=== PATIENT | female | born 1975 | race African-American/Black ===

== ENCOUNTER 2020-06-04 17:11 | Emergency (ER) | payer MEDICAID ==
[~2020-06-04] VITALS: Ht 160 cm; Wt 104.0 kg
[~2020-06-04 17:11] MED LIST: IBUP-1636 PO
[2020-06-04] MEDS ORDERED: ACETAMINOPHEN WITH CODEINE 300/30MG TABLET PO ONE (21:15)
[2020-06-04 22:35] VITALS: BP 161/104
== END 2020-06-04 22:36 | disposition home or self-care (01) ==
LOC: ER 17:11
DX: S09.90XA Unspecified injury of head, initial encounter (principal); S80.811A Abrasion, right lower leg, initial encounter; T14.8XXA Other injury of unspecified body region, initial encounter; I10 Essential (primary) hypertension; Z88.0 Allergy status to penicillin; Z90.49 Acquired absence of other specified parts of digestive tract; Z98.51 Tubal ligation status; Y00.XXXA Assault by blunt object, initial encounter; Y93.89 Activity, other specified; Y92.89 Other specified places as the place of occurrence of the external cause
CPT/HCPCS: 73000; 73030; 73590; 81025; 99284

== ENCOUNTER 2020-09-26 09:08 | Emergency (ER) | payer MEDICAID ==
[~2020-09-26] VITALS: Ht 157.5 cm; Wt 90.0 kg
[2020-09-26] MEDS ORDERED: ASPIRIN 81MG TABLET PO ONE (09:30)
[2020-09-26] MEDS: NITROGLYCERIN 0.4MG TABLET SL SL PRN ×2 (09:54→10:17)
[2020-09-26 09:59] LABS: BASOPHILS % 0.8 % (0.0-2.0); EOSINOPHILS % 1.9 % (0.0-5.0); HEMATOCRIT. 37.2 % (36.0-48.0); HEMOGLOBIN. 12.3 g/dL (12.0-16.0); LYMPHOCYTES % 33.7 % (20.0-50.0); MEAN CORPUSCULAR HEMOGLOBIN 29.7 pg (28.0-32.0); MEAN CORPUSCULAR VOLUME 89.3 fL (81.0-99.0); MEAN PLATELET VOLUME 7.8 fl (7.4-10.4); MONOCYTES % 5.9 % (2.0-8.0); NEUTROPHILS % 57.7 % (40.0-76.0); PLATELET 347 x1000/uL (130-400); RED BLOOD CELL COUNT 4.16 mill/uL (4.2-5.4); RED CELL DISTRIBUTION WIDTH 12.9 % (11.6-14.6)
[2020-09-26 10:00] LABS: CHLORIDE 108 mEq/L (98-107)
[2020-09-26] MEDS ORDERED: CYCLOBENZAPRINE 10MG TABLET PO ONE (10:45)
[2020-09-26] MEDS ORDERED: KETOROLAC 15MG/ML VIAL IV ONE (10:45)
[2020-09-26] MEDS ORDERED: LORAZEPAM 0.5MG TABLET PO ONE (12:45)
[2020-09-26] MEDS ORDERED: CYCL10TA7 MT (14:14)
[2020-09-26] MEDS ORDERED: IBUP-2029 MT (14:14)
[2020-09-26 17:38] VITALS: BP 123/76
== END 2020-09-26 19:20 | disposition home or self-care (01) ==
LOC: ER 09:08 → EDBEDREQ 09:23 → ER 19:20 → CANBEDREQ 20:01
DX: R07.89 Other chest pain (principal); M54.12 Radiculopathy, cervical region; I10 Essential (primary) hypertension; E05.90 Thyrotoxicosis, unspecified without thyrotoxic crisis or storm; Z90.49 Acquired absence of other specified parts of digestive tract; Z98.51 Tubal ligation status; Z88.0 Allergy status to penicillin
CPT/HCPCS: 36415; 71045; 80053; 83880; 84484; 85025; 93005; 96374; 99285; J1885; Z7610

== ENCOUNTER 2021-07-03 12:22 | Emergency (ER) | payer MEDICAID ==
[~2021-07-03] VITALS: Ht 160 cm; Wt 97.0 kg
[~2021-07-03 12:22] MED LIST changes: +CYCL10TA7 MT; +IBUP-2029 MT
[2021-07-03 12:23] VITALS: BP 132/86
== END 2021-07-03 18:58 | disposition left against medical advice (07) ==
LOC: ER 12:22
DX: Z53.21 Procedure and treatment not carried out due to patient leaving prior to being seen by health care provider (principal); R10.32 Left lower quadrant pain; R07.9 Chest pain, unspecified; M79.18 Myalgia, other site; R05.9 Cough, unspecified
CPT/HCPCS: 93005

== ENCOUNTER 2022-06-11 22:04 | Emergency (ER) | payer MEDICAID ==
[~2022-06-11] VITALS: Ht 157.5 cm; Wt 99.8 kg
[~2022-06-11 22:04] MED LIST changes: +CYCL10TA21 MT; -CYCL10TA7 MT
[2022-06-11] MEDS ORDERED: ACETAMINOPHEN 325MG TABLET PO ONE (22:45)
[2022-06-11] MEDS: LIDOCAINE 5% PATCH TOP SCH (23:13)
[2022-06-12] MEDS: LIDOCAINE 5% PATCH TOP SCH (00:38)
[2022-06-12] MEDS ORDERED: HYDROCODONE/ACETAMINOPHEN 5/325MG TABLET PO NR (02:30)
[2022-06-12] MEDS ORDERED: BACL-141 MT (05:14)
[2022-06-12] MEDS ORDERED: LIDO700A15 TP (05:14)
[2022-06-12] MEDS ORDERED: IBUP-2029 MT (05:14)
[2022-06-12 06:00] VITALS: BP 154/78
== END 2022-06-12 06:00 | disposition home or self-care (01) ==
LOC: ER 22:04
DX: S83.8X1A Sprain of other specified parts of right knee, initial encounter (principal); S13.4XXA Sprain of ligaments of cervical spine, initial encounter; V49.49XA Driver injured in collision with other motor vehicles in traffic accident, initial encounter; Y93.89 Activity, other specified; Y92.89 Other specified places as the place of occurrence of the external cause; Y99.8 Other external cause status; I10 Essential (primary) hypertension; Z90.49 Acquired absence of other specified parts of digestive tract; Z98.51 Tubal ligation status; Z88.0 Allergy status to penicillin; R07.89 Other chest pain
CPT/HCPCS: 71101; 71250; 73562; 81025; 99285